=== PATIENT | male | born 2000 | race Caucasian/White ===

== ENCOUNTER 2018-09-19 16:11 | Emergency (ER) | payer BC, SELFPAY ==
[2018-09-19 16:18] VITALS: BP 129/84; PULSE 60; RESP 16; TEMP 36.6; O2SAT 99
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
[2018-09-19] MEDS: Amoxicillin 875/Clav. 125 TAB PO (17:19)
== END 2018-09-19 17:28 | disposition home or self-care (01) ==
PROVIDERS: Emergency Provider Nurse Practitioner Family; PCP Pediatrics
DX: S01.511A Laceration without foreign body of lip, initial encounter (principal); Y04.0XXA Assault by unarmed brawl or fight, initial encounter
CPT/HCPCS: 99283

== ENCOUNTER 2019-07-10 13:14 | Emergency (ER) | payer BC, SELFPAY ==
[2019-07-10 13:18] VITALS: BP 133/79; PULSE 75; RESP 16; TEMP 37; O2SAT 97
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
[2019-07-10] MEDS: Ketorolac 30 MG/ML VIAL IVP (14:18)
[2019-07-10] MEDS: Normal Saline 1,000 ML 1000 ML IV (14:18)
[2019-07-10] MEDS: Lidocaine 5% Patch 1 PATCH TP (14:19)
[2019-07-10 14:25] LABS: Abs Immature Grans 0.04 k/cumm (0.0-0.09); Absolute Basophil Count 0.02 k/cumm (0.0-0.2); Absolute Eosinophil Count 0.01 k/cumm (0.0-0.7); Absolute Lymphocyte Count 1.14 k/cumm (1.2-3.4); Absolute Neutrophil Count 7.32 k/cumm (1.2-6.7); Basophils % 0.2; Eosinophils % 0.1; HCT 42.6 % (40.0-50.0); HGB 14.8 g/dL (13.5-17.5); Immature Grans % 0.4; Lymphocytes % 12.5; Mean Corp. HGB Concentration 34.7 g/dL (32.0-36.0); Mean Corpuscular Hemoglobin 29.4 pg (27.0-33.0); Mean Corpuscular Volume 84.7 fL (80-95); Mean Platelet Volume 9.7 fL (8.0-11.0); Monocytes % 6.6; Neutrophils % 80.2; Platelet Count 271 x1000/uL (130-400); RBC 5.03 m/cumm (4.50-6.00); RBC Distribution Width 12.7 % (11.8-14.1); White Blood Cell Count 9.13 k/cumm (4.4-10.8)
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
[2019-07-10 14:32] LABS: Lipase 105 U/L (73-393); Magnesium 2.1 mg/dL (1.8-2.4)
[2019-07-10 14:37] LABS: ALT 37 U/L (16-63); AST 53 U/L (15-37); Albumin 3.9 g/dL (3.4-5.0); Alkaline Phosphatase 69 U/L (46-116); Anion Gap 9.2 mmol/L (3-11); BUN 7 mg/dL (7-18); Bilirubin, Total 0.5 mg/dL (0.2-1.0); CO2 27.8 mmol/L (21.0-32.0); CREATININE 0.93 mg/dL (0.70-1.30); Calcium 8.7 mg/dL (8.5-10.1); Chloride 103 mmol/L (98-107); Glucose 92 mg/dL (74-106); Potassium 4.2 mmol/L (3.5-5.1); Sodium 140 mmol/L (136-145); Total Protein 7.3 g/dL (6.4-8.2)
[2019-07-10 14:43] LABS: Troponin I < 0.05 ng/Ml (<0.06)
[2019-07-10] MEDS: Omnipaque 350 MG/ML 100 ML BTL IJ (14:45)
--- NOTE | 2019-07-10 14:45 | DI.RAD_ITS ---
EXAM: XR FOREARM RT CLINICAL HISTORY: s/p fall, r/o acute fracture. TECHNIQUE: 2D digital imaging was performed. COMPARISON: No exams were available for comparison FINDINGS: BONES: No acute fracture is present. No bony destructive lesion is seen. Visualized portion of elbow and wrist joints are unremarkable. SOFT TISSUE: Normal. FINDINGS: Unremarkable radiographs of the right forearm.
--- NOTE | 2019-07-10 14:47 | DI.RAD_ITS ---
EXAM: XR FOREARM LT CLINICAL HISTORY: s/p fall, r/o acute fracture. TECHNIQUE: 2D digital imaging was performed. COMPARISON: XR FOREARM RT from 07/10/2019 FINDINGS: BONES: No acute fracture is present. No bony destructive lesion is seen. Visualized portion of elbow and wrist joints are unremarkable. SOFT TISSUE: Normal. IMPRESSION: Unremarkable radiographs of the left forearm.
--- NOTE | 2019-07-10 14:57 | DI.VRAD_ITS ---
PROCEDURE INFORMATION: Exam: CT Chest With Contrast Exam date and time: 07/10/2019 2:34 PM Age: 19 years old Clinical indication: Other: Fall onto R rib/abdomen; R/O rib FX and liver injury; Other: Pain- fall TECHNIQUE: Imaging protocol: Computed tomography of the chest with intravenous contrast. Radiation optimization: All CT scans at this facility use at least one of these dose optimization techniques: automated exposure control; mA and/or kV adjustment per patient size (includes targeted exams where dose is matched to clinical indication); or iterative reconstruction. Contrast material: OMNIPAQUE 350; Contrast volume: 100 ml; Contrast route: IV; COMPARISON: No relevant prior studies available. FINDINGS: Lungs: Unremarkable. No consolidation. No masses. Pleural space: Unremarkable. No pneumothorax. No pleural effusion. Heart: Unremarkable. No cardiomegaly. No pericardial effusion. Aorta: Unremarkable. No aortic aneurysm. Lymph nodes: Unremarkable. No enlarged lymph nodes. Bones/joints: Unremarkable. No acute fracture. Soft tissues: Unremarkable. IMPRESSION: No acute findings. PROCEDURE INFORMATION: Exam: CT Abdomen And Pelvis With Contrast Exam date and time: 07/10/2019 2:34 PM Age: 19 years old Clinical indication: Other: Fall onto R rib/abdomen; R/O rib FX and liver injury; Other: Pain- fall TECHNIQUE: Imaging protocol: Computed tomography of the abdomen and pelvis with intravenous contrast. Radiation optimization: All CT scans at this facility use at least one of these dose optimization techniques: automated exposure control; mA and/or kV adjustment per patient size (includes targeted exams where dose is matched to clinical indication); or iterative reconstruction. Contrast material: OMNIPAQUE 350; Contrast volume: 100 ml; Contrast route: IV; COMPARISON: No relevant prior studies available. FINDINGS: Liver: Normal. No mass. Gallbladder and bile ducts: Normal. No calcified stones. No ductal dilation. Pancreas: Normal. No ductal dilation. Spleen: Normal. No splenomegaly. Adrenals: Normal. No mass. Kidneys and ureters: Normal. No hydronephrosis. Stomach and bowel: Unremarkable. No obstruction. No mucosal thickening. Appendix: No evidence of appendicitis. Intraperitoneal space: Unremarkable. No free air. No significant fluid collection. Vasculature: Unremarkable. No abdominal aortic aneurysm. Lymph nodes: Unremarkable. No enlarged lymph nodes. Bladder: Unremarkable as visualized. Reproductive: Unremarkable as visualized. Bones/joints: Unremarkable. No acute fracture. Soft tissues: Unremarkable. IMPRESSION: No acute findings. Dictated and Authenticated by: Deanna Washington MD. Ordering:ELMER Perez MD
--- NOTE | 2019-07-10 14:58 | DI.VRAD_ITS ---
PROCEDURE INFORMATION: Exam: XR Left Forearm Exam date and time: 07/10/2019 2:50 PM Age: 19 years old Clinical indication: Pain; Lower or forearm; Left TECHNIQUE: Imaging protocol: XR Left forearm. Views: 2 views. COMPARISON: No relevant prior studies available. FINDINGS: Bones/joints: There is no evidence of acute fracture.There is no evidence of malalignment or dislocation. Soft tissues: Normal. IMPRESSION: There is no evidence of acute fracture.There is no evidence of malalignment or dislocation. Dictated and Authenticated by: Deanna Washington MD. Ordering:ELMER Perez MD
--- NOTE | 2019-07-10 14:58 | DI.VRAD_ITS ---
PROCEDURE INFORMATION: Exam: XR Right Forearm Exam date and time: 07/10/2019 2:49 PM Age: 19 years old Clinical indication: Pain; Lower or forearm; Right TECHNIQUE: Imaging protocol: XR Right forearm. Views: 2 views. COMPARISON: No relevant prior studies available. FINDINGS: Bones/joints: There is no evidence of acute fracture.There is no evidence of malalignment or dislocation. Soft tissues: Normal. IMPRESSION: There is no evidence of acute fracture.There is no evidence of malalignment or dislocation. Dictated and Authenticated by: Deanna Washington MD. Ordering:ELMER Perez MD
--- NOTE | 2019-07-10 15:14 | DI.VRAD_ITS ---
PROCEDURE INFORMATION: Exam: CT Thoracic Spine Without Contrast Exam date and time: 07/10/2019 2:34 PM Age: 19 years old Clinical indication: Other: Fall off roof, midline lower t spine tender; Additional info: Fall off roof, midline lower t spine tender, R/O acute fracture TECHNIQUE: Imaging protocol: Computed tomography images of the thoracic spine without contrast. Radiation optimization: All CT scans at this facility use at least one of these dose optimization techniques: automated exposure control; mA and/or kV adjustment per patient size (includes targeted exams where dose is matched to clinical indication); or iterative reconstruction. COMPARISON: No relevant prior studies available. FINDINGS: Vertebrae: There is no evidence of acute fracture.There is no evidence of malalignment or dislocation. Unhealed well corticated fracture of the right lateral inferior aspect T11 consistent with old avulsion fracture. Discs/Spinal canal/Neural foramina: No spinal stenosis. Soft tissues: Unremarkable. IMPRESSION: 1. There is no evidence of acute fracture.There is no evidence of malalignment or dislocation. 2. Unhealed well corticated fracture of the right lateral inferior aspect T11 consistent with old avulsion fracture. PROCEDURE INFORMATION: Exam: CT Lumbar Spine Without Contrast Exam date and time: 07/10/2019 2:34 PM Age: 19 years old Clinical indication: Other: Fall off roof, midline lower t spine tender; Additional info: Fall off roof, midline lower t spine tender, R/O acute fracture TECHNIQUE: Imaging protocol: Computed tomography images of the lumbar spine without contrast. Radiation optimization: All CT scans at this facility use at least one of these dose optimization techniques: automated exposure control; mA and/or kV adjustment per patient size (includes targeted exams where dose is matched to clinical indication); or iterative reconstruction. COMPARISON: No relevant prior studies available. FINDINGS: Vertebrae: There is no evidence of acute fracture.There is no evidence of malalignment or dislocation. Discs/Spinal canal/Neural foramina: No spinal stenosis. No neural foraminal narrowing. Bladder: Distended bladder Soft tissues: Unremarkable. IMPRESSION: There is no evidence of acute fracture.There is no evidence of malalignment or dislocation. Dictated and Authenticated by: Deanna Washington MD. Ordering:ELMER Perez MD
[2019-07-10 15:37] VITALS: BP 115/62; PULSE 62; RESP 16; TEMP 37.1; O2SAT 99
== END 2019-07-10 15:43 | disposition home or self-care (01) ==
PROVIDERS: Emergency Provider Physician Assistant; PCP Pediatrics
DX: S20.211A Contusion of right front wall of thorax, initial encounter (principal); S30.1XXA Contusion of abdominal wall, initial encounter; S50.811A Abrasion of right forearm, initial encounter; S50.812A Abrasion of left forearm, initial encounter; W13.2XXA Fall from, out of or through roof, initial encounter
CPT/HCPCS: 74177; 80053; 83690; 96361; 96374; 99285; 71260; 73090; 83735; 84484; 85025; J1885; J3490

== ENCOUNTER → 2023-06-19 21:31 | Outpatient (CLI) | payer OTHER, SELFPAY ==
--- NOTE | 2023-06-19 10:35 | DI.RAD_ITS ---
Exam(s) XR THORACIC SPINE COMPLETE EXAM: XR THORACIC SPINE COMPLETE CLINICAL HISTORY: evaluate pathology, thoracic back pain, M54.6. TECHNIQUE: 2D digital imaging was performed. COMPARISON: No exams were available for comparison FINDINGS: 3 views No evidence of fracture or listhesis. No significant disc space narrowing. No abnormal widening of the paraspinal lines. No osseous lesions. No significant scoliosis. Bone density appears normal. IMPRESSION: No significant radiographic findings on these images of the thoracic spinal column. DATA REPOSITORY: RADIATION DOSE DELIVERED:
--- NOTE | 2023-06-19 10:35 | DI.RAD_ITS ---
Exam(s) XR LUMBAR SPINE COMPLETE EXAM: XR LUMBAR SPINE COMPLETE CLINICAL HISTORY: evaluate pathology, lumbar back pain, M54.50. TECHNIQUE: 2D digital imaging was performed. COMPARISON: CT CT CHEST/ABD/PEL W from 07/10/2019 FINDINGS: Five views. There is no evidence of fracture, listhesis, nor pars interarticularis defects. All the disc spaces exhibit normal height. There are multilevel endplate Schmorl's node invaginations which were also ev ident on sagittal reconstructed images of CT scan of the abdomen performed June 2019. There is n o scoliosis. No significant facet arthropathy. Sacroiliac joints appear unremarkable. IMPRESSION: No significant osseous findings the lumbosacral spinal column. Multilevel Schmorl's node invaginatio ns again noted, unchanged from prior CT scan June 2019. DATA REPOSITORY: RADIATION DOSE DELIVERED:
== END ==
PROVIDERS: Visit Provider Nurse Practitioner Family
DX: M54.50 Low back pain, unspecified (principal); M54.6 Pain in thoracic spine
CPT/HCPCS: 72072; 72110

== ENCOUNTER → 2024-01-05 01:44 | Outpatient (CLI) | payer OTHER, SELFPAY ==
--- NOTE | 2024-01-05 07:30 | DI.MRI_ITS ---
Exam(s) MR THORACIC SPINE WO EXAM: MR THORACIC SPINE WO CLINICAL HISTORY: suspect disc involvement,THORACIC MYOFASCIAL STRAIN,S29.019D. TECHNIQUE: Multiplanar multisequence MRI of the Thoracic spine was performed. CONTRAST MATERIAL: Noncontrast COMPARISON: CR XR LUMBAR SPINE COMPLETE from 06/19/2023 CR XR THORACIC SPINE COMPLETE from 06/19/2023 FINDINGS: Bones: The vertebral body heights are well maintained. Alignment is satisfactory. The signal characte ristics are unremarkable. Small endplate osteophytes in the lower thoracic regions. Schmorl's node s at multiple levels. Cord: The thoracic cord is normal size and signal intensity. No intrinsic cord lesion is present. Discs: No disc herniation or significant bulge is present. Soft tissues: Normal. No abnormal signal in the paraspinal muscles. The kidneys appear normal. A anne is normal in diameter. IMPRESSION: Mild degenerative changes at lower thoracic spine. DATA REPOSITORY:
--- NOTE | 2024-01-05 12:50 | DI.RAD_ITS ---
Exam(s) XR EYE FOREIGN BODY EXAM: XR EYE FOREIGN BODY INDICATION: MRI clearance,H/O FOREIGN BODY IN EYE,Z87.821. COMPARISON: No exams were available for comparison TECHNIQUE: 2D digital imaging was performed. Three views. FINDINGS: No radiopaque foreign body. No fracture is identified. Sinuses are grossly clear. IMPRESSION: No radiopaque foreign body. DATA REPOSITORY: RADIATION DOSE DELIVERED:
== END ==
PROVIDERS: Visit Provider Nurse Practitioner Family
DX: Z87.821 Personal history of retained foreign body fully removed (principal); S29.019D Strain of muscle and tendon of unspecified wall of thorax, subsequent encounter
CPT/HCPCS: 70030; 72146

== ENCOUNTER → 2024-01-29 00:08 | Outpatient (CLI) | payer OTHER, SELFPAY ==
--- NOTE | 2024-01-29 07:00 | DI.MRI_ITS ---
Exam(s) MR LUMBAR SPINE WO EXAM: MR LUMBAR SPINE WO CLINICAL HISTORY: persistent LUMBAR BACK PAIN,PARASPINAL MUSCLE SPASM,M54.50,M62.830. TECHNIQUE: Multiplanar multisequence MRI of the Lumbar spine was performed. COMPARISON: CR XR LUMBAR SPINE COMPLETE from 06/19/2023 CR XR EYE FOREIGN BODY from 01/05/2024 FINDINGS: Bones: The last intervertebral disc space is designated the L5/S1 level for the numbering purpose of this ex amination. The vertebral body heights are well maintained. Alignment: Unremarkable. The marrow signal characteristics are unremarkable. Cord: The conus tip ends at the T12 level. It is of normal size and signal intensity. T12-L1: No focal disc herniation is present. No central spinal canal stenosis.No neural foraminal st enosis. Small Schmorl's nodes. L1-2: No focal disc herniation is present. No central spinal canal stenosis.No neural foraminal sten osis. Small Schmorl's nodes. L2-3: No focal disc herniation is present. No central spinal canal stenosis.No neural foraminal farzad nosis. Small Schmorl's nodes. L3-4: No focal disc herniation is present. No central spinal canal stenosis.No neural foraminal farzad nosis. Tiny Schmorl's nodes. L4-5:Disc height is maintained. Small endplate osteophytes projecting posteriorly. Minimal disc bul ging. No focal disc herniation is present. Facet degenerative changes and ligamentous hypertrophy c ombine to produce mild central canal stenosis. No neural foraminal stenosis. L5-S1: No focal disc herniation is present. Facet degenerative changes, left greater than right. Mi ld ligamentous hypertrophy. No significant central canal stenosis. No neural foraminal stenosis. The visualized SI joints and sacrum are unremarkable. Soft tissues: The paraspinal soft tissues are unremarkable. IMPRESSION: Combination of mild disc bulging facet degenerative changes as well as ligamentous hypertrophy produc e mild central canal stenosis at L4-5. DATA REPOSITORY:
== END ==
PROVIDERS: Visit Provider Nurse Practitioner Family
DX: M62.830 Muscle spasm of back (principal); M54.50 Low back pain, unspecified; M48.062 Spinal stenosis, lumbar region with neurogenic claudication
CPT/HCPCS: 72148

== ENCOUNTER 2024-05-11 07:29 | Outpatient (CLI) | payer OTHER, SELFPAY ==
[2024-05-11 07:41] VITALS: BP 116/79; PULSE 94; RESP 20; TEMP 36.7; O2SAT 100
[2024-05-11 08:15] VITALS: O2SAT 100
[2024-05-11 08:20] VITALS: O2SAT 99
[2024-05-11 08:30] VITALS: O2SAT 99
[2024-05-11] MEDS: Nerve Block Tray 1 EACH MC (08:42)
[2024-05-11] MEDS: methylPREDNISolone ACETATE 40 MG/ML VIAL IJ (08:42)
[2024-05-11] MEDS: Lidocaine 2% Multi-Dose 20 ML VIAL IJ (08:42)
--- NOTE | 2024-05-11 08:50 | PDOC.PAIN ---
Date of service: 05/11/24 Time of Service: 08:57 US Guided Injections Type of Ultrasound Guided Injection: Lower back Right Paraspinous muscle and Middle back Bilateral Paraspinous muscle Trigger Point Injection Pre-Procedural Evaluation Pain to palpation of the paraspinous muscles bilaterally Referral Patient has been referred to the [facility] for Right Paraspinous muscle Lower back and Bilateral Paraspinous muscle Middle back Trigger Point Injection for a chief complaint of Pre-Procedural Pain Score Pre-procedural pain score: 7/10 Reason for Exam Muscle pain Patient Interview Patient was interviewed and medical record reviewed: Yes There were no contraindications to performing an US guided procedure. Risks,expected side effects, potential benefits were reviewed. The patient consent form was signed and witnessed. Standard time out procedure was performed. Patient Safety No skin issues at the site of injections Procedure Description Patient was placed in the prone position and the following Pulse Ox applied. Pre-Procedure ultrasound scanning performed using a Linear 9 MHz probe Site Preparation Chloroprep Local Anesthesia of Lidocaine 2%. A 21 G 3.5 [place] ultrasound needle was placed under live US guidance using an in-plane approach to the target area. After visualization of the needle tip at the target area Depo-Medrol 40mg per cc and Lidocaine 2% were used. Total of Injectate/Medication Note: 1 cc of Depomedrol and 8 cc of 2% Lidocaine. Negative aspiration for blood. [place] were removed without difficulty. Ultrasound images were captured and stored. Patient Mental Status Patient was alert and awake during procedure Vital Signs Vital signs were stable throughout the procedure and recorded by nursing. Follow Up/Discharge Follow up plans and appointments were discussed with patient. Post procedure instruction was given as documented in nursing documentation. Discharge criteria met and patient discharged from Pain Management Center: Yes Post Procedure Pain Post Procedure Pain: 3/10 Patient tolerated procedure well and No complications Procedure Outcome: Successful Trigger Point Injection 3+muscles Non US Guided Injections Procedure Description Patient was placed in the prone position Post Procedure Pain Post Procedure Pain: 3/10
== END 2024-05-11 07:30 | disposition home or self-care (01) ==
PROVIDERS: Visit Provider Preventive Medicine Occupational Medicine
DX: M79.18 Myalgia, other site (principal)
CPT/HCPCS: 20553; J1010; J2003

== ENCOUNTER 2024-07-21 13:44 | Outpatient (CLI) | payer OTHER, SELFPAY ==
--- NOTE | 2024-07-21 06:00 | DI.RAD_ITS ---
Exam(s) XR PAIN CLINIC THORACIC SP 2V EXAM: XR PAIN CLINIC THORACIC SP 2V CLINICAL HISTORY: DX: Thoracic spondylosis TECHNIQUE: 2D and realtime digital imaging was performed. CONTRAST MATERIAL: Refer to procedure report. COMPARISON: No exams were available for comparison FINDINGS: Fluoroscopy was provided for Dr. Smith during the performance of a thoracic medial branch block. Ple ase refer to the procedure report for complete details. Ka,r=4.92 mGy IMPRESSION: RADIATION DOSE DELIVERED: 0.0 0.0 0
[2024-07-21 13:56] VITALS: BP 122/87; PULSE 82; RESP 20; TEMP 36.7; O2SAT 96
[2024-07-21 14:14] VITALS: O2SAT 98
[2024-07-21 14:16] VITALS: BP 128/83; PULSE 68; PULSE 72; RESP 16; O2SAT 99
[2024-07-21 14:20] VITALS: PULSE 80; RESP 14; O2SAT 99
[2024-07-21 14:25] VITALS: BP 116/86; PULSE 75
--- NOTE | 2024-07-21 14:26 | PDOC.PAIN ---
Date of service: 07/21/24 Time of Service: 14:26 Pain Managment Procedure Note Procedure Note Procedure Note: PROCEDURE NOTE Right Thoracic Medial Branch Blocks Date of Service: July 21, 2024 Patient: Topher Jaime Provider: Bora Smith DO, MPH Topherflor Jaime has been referred to the [facility] for lumbar medial branch blocks. Pre-operative diagnosis: Thoracic Spondylosis without Myelopathy ICD-10 M47.14 Post-operative diagnosis: Same Pre-procedure pain: VAS= 7-8/10 COMMENTS: I previously evaluated him in the office. His symptoms are unchanged. Bianca was interviewed and the medical records were reviewed. There were no medical, pharmacologic, radiographic or other structural contraindications to attempting fluoroscopically guided local anesthetic thoracic medial branch blocks. Risks and potential side effects were discussed. I also discussed the potential benefit(s) of the procedure with Topher, and voiced concerns were addressed. After Topher was completely informed about the procedure, the printed consent form was signed. A standard time-out procedure was performed. Topher was placed in the prone position on the fluoroscopy table. Automated blood pressure cuff and pulse oximeter were applied. The skin entry points for approaching the anatomic target points of the segmental medial branches of right T9, T10, and T11 were identified with fluoroscopy and marked. The skin at the target site area was thoroughly prepared with Chlorhexadine. The skin was then draped. Next, a 25 gauge 3.5 spinal needle was placed under fluoroscopic guidance down on to the target point (the articular pillar) for each respective segmental medial branch. Position was confirmed in A/P and lateral views. Aspiration revealed no blood or clear fluid. Next, 0.25ml of omnipaque 240 was injected at each level. No contrast following a vascular or neural pattern was visualized under continuous fluoroscopy. Next, 0.25 ml of preservative-free 0.5% bupivicaine was injected at each level. There was no unusual discomfort expressed by Topher. The needles were withdrawn without difficulty. (49 mls of Omnipaque was wasted) Topher was observed and was without hemodynamic, neurologic, or allergic reactions.? Fluoroscopic images were digitally archived. Provacative testing Right Side Directly before the block VAS (0-10) = 7/10 Five minutes after the block VAS (0-10) = 2/10 Percentage relief obtained with this diagnostic block 80% Any improved physical functioning directly after the blocks? Able to move his back without problems. Follow up plans and appointments were discussed with Topher. Topher was instructed to keep careful note of how the usual pain was modified by these injections. Specifically, to keep a pain diary for the next 4 hours using a numeric pain scale of 0-10 and report these results. Post procedure instruction was given as documented in the nursing documentation and having met discharge criteria, the patient was [facility]. Based on the medial branches blocked today, if they patient has adequate relief and we are able to proceed to radiofrequency ablation, the treatment should result in the denervation of the right T10-T11 and T11-T12 facet joints. We would expect to denervate a total of 2 facets during the radiofrequency ablation. COMMENTS: No apparent complications. Post-procedure pain: VAS= 2/10 Topher will call back with 0-4 hour post-procedure pain scores. I personally performed the entire procedure. BORA SMITH DO, MPH ABPM&R-subspecialty board certification in Pain Medicine [facility] [facility]
[2024-07-21] MEDS: Omnipaque 240 MG/ML 50 ML BTL IJ (14:34)
[2024-07-21] MEDS: Bupivacaine 0.5% Pres-Free 10 ML VIAL IJ (14:34)
[2024-07-21] MEDS: Nerve Block Tray 1 EACH MC (14:36)
== END 2024-07-21 13:45 | disposition home or self-care (01) ==
LOC: PC 13:44
PROVIDERS: Visit Provider Preventive Medicine Occupational Medicine
DX: M47.14 Other spondylosis with myelopathy, thoracic region (principal)
CPT/HCPCS: 64491; 72070; J0665; Q9967

== ENCOUNTER 2024-08-11 09:48 | Outpatient (CLI) | payer OTHER, SELFPAY ==
[2024-08-11 09:58] VITALS: BP 120/87; PULSE 69; RESP 18; TEMP 36.7; O2SAT 100
[2024-08-11 10:14] VITALS: PULSE 68; PULSE 69; RESP 16; O2SAT 99
[2024-08-11 10:15] VITALS: BP 147/75; PULSE 68; RESP 16; O2SAT 100
[2024-08-11 10:16] VITALS: BP 138/81; PULSE 67; RESP 20; O2SAT 100
[2024-08-11 10:20] VITALS: PULSE 61; RESP 18; O2SAT 99
--- NOTE | 2024-08-11 10:29 | DI.RAD_ITS ---
Exam(s) XR PAIN CLINIC THORACIC SP 2V EXAM: XR PAIN CLINIC THORACIC SP 2V CLINICAL HISTORY: DX: Thoracic Spondylosis TECHNIQUE: 2D and realtime digital imaging was performed. CONTRAST MATERIAL: Refer to procedure report. COMPARISON: No exams were available for comparison FINDINGS: Fluoroscopy was provided for Dr. Smith during the performance of a thoracic medial branch block. Ple ase refer to the procedure report for complete details. Ka,r=6.54 mGy IMPRESSION: RADIATION DOSE DELIVERED: 0.0 0.0 0
[2024-08-11] MEDS: Omnipaque 240 MG/ML 50 ML BTL IJ (10:30)
[2024-08-11] MEDS: Bupivacaine 0.5% Pres-Free 10 ML VIAL IJ (10:30)
[2024-08-11] MEDS: Nerve Block Tray 1 EACH MC (10:30)
--- NOTE | 2024-08-11 10:35 | PDOC.PAIN_ITS ---
Date of service: 08/11/24 Time of Service: 10:35 Pain Managment Procedure Note Procedure Note Procedure Note: PROCEDURE NOTE Right Thoracic Medial Branch Blocks #2 Date of Service: August 11, 2024 Patient: Topher Jaime Provider: Bora Smith DO, MPH Topherflor Jaime has been referred to the [facility] for thoracic medial branch blocks. Pre-operative diagnosis: Thoracic Spondylosis without Myelopathy ICD-10 M47.814 Post-operative diagnosis: Same Pre-procedure pain: VAS= 6/10 COMMENTS: He did very well with his first set of TMBBs Bianca was interviewed and the medical records were reviewed. There were no medical, pharmacologic, radiographic or other structural contraindications to attempting fluoroscopically guided local anesthetic thoracic medial branch blocks. Risks and potential side effects were discussed. I also discussed the potential benefit(s) of the procedure with Topher, and voiced concerns were addressed. After Topher was completely informed about the procedure, the printed consent form was signed. A standard time-out procedure was performed. Topher was placed in the prone position on the fluoroscopy table. Automated blood pressure cuff and pulse oximeter were applied. The skin entry points for approaching the anatomic target points of the segmental medial branches of right T9, T10, and T11 were identified with fluoroscopy and marked. The skin at the target site area was thoroughly prepared with Chlorhexadine. The skin was then draped. Next, a 25 gauge 3.5 spinal needle was placed under fluoroscopic guidance down on to the target point (the articular pillar) for each respective segmental medial branch. Position was confirmed in A/P and lateral views. Aspiration revealed no blood or clear fluid. Next, 0.25ml of omnipaque 240 was injected at each level. No contrast following a vascular or neural pattern was visualized under continuous fluoroscopy. Next, 0.25 ml of preservative-free 0.5% bupivicaine was injected at each level. There was no unusual discomfort expressed by Topher. The needles were withdrawn without difficulty. (49 mls of Omnipaque was wasted) Topher was observed and was without hemodynamic, neurologic, or allergic reactions.? Fluoroscopic images were digitally archived. Provacative testing using the Modified [place]'s facet loading test- Right Side Directly before the block VAS (0-10) = 6/10 Five minutes after the block VAS (0-10) = 2/10 Percentage relief obtained with this diagnostic block 80% Any improved physical functioning directly after the blocks? Able to move his back with ease. Follow up plans and appointments were discussed with Topher. Topher was instructed to keep careful note of how the usual pain was modified by these injections. Specifically, to keep a pain diary for the next 4 hours using a numeric pain scale of 0-10 and report these results. Post procedure instruction was given as documented in the nursing documentation and having met discharge criteria, the patient was [facility] from the [facility]. Based on the medial branches blocked today, if they patient has adequate relief and we are able to proceed to radiofrequency ablation, the treatment should result in the denervation of the right T10-T11 and T11-T12 facet joints. We would expect to denervate a total of 2 facets during the radiofrequency ablation. COMMENTS: No apparent complications. Post-procedure pain: VAS= 2/10 Topher will call back with 0-4 hour post-procedure pain scores. I personally performed the entire procedure. BORA SMITH DO, MPH ABPM&R-subspecialty board certification in Pain Medicine [facility]
== END 2024-08-11 09:49 | disposition home or self-care (01) ==
PROVIDERS: Visit Provider Preventive Medicine Occupational Medicine
DX: M47.814 Spondylosis without myelopathy or radiculopathy, thoracic region (principal)
CPT/HCPCS: 64490; 64491; 72070; J0665; Q9967

== ENCOUNTER 2024-09-08 11:45 | Outpatient (CLI) | payer OTHER, SELFPAY ==
[2024-09-08] VITALS (10 sets, daily range): BP systolic 117–145; BP diastolic 62–93; PULSE 64–77; RESP 10–21; TEMP 36.7; O2SAT 96–100
--- NOTE | 2024-09-08 12:25 | PDOC.PAIN ---
Date of service: 09/08/24 Time of Service: 12:25 Pain Managment Procedure Note Procedure Note Procedure Note: PROCEDURE NOTE RIGHT THORACIC RADIOFREQUENCY ABLATION Date of Service: September 08, 2024 Patient:? Topher Jaime? Provider:? Ari Smith DO, MPH Topher Jaime [facility] for [Bilateral] Lumbar Radiofrequency Ablation with the [employer] Machine.? Pre Operative Diagnosis: Thoracic Spondylosis without Myelopathy ICD-10 M47.814 Post Operative Diagnosis: Same Pre procedure pain; VAS= 7/10 Comments: Good relief with first 2 TMBBs PROCEDURE: Radiofrequency Ablation of medial branches - right T9-T11. Topher?was interviewed and the medical record was reviewed.? There were no medical, pharmacologic, radiographic or other structural contraindications to attempting fluoroscopically guided RIGHT thoracic Radiofrequency Ablation.?Risks and expected side effects as well as potential benefit of the procedure were reviewed with Topher, and the patient's voiced concerns were addressed.? The printed consent form was signed.? Standard time-out procedure was performed. Topher was brought into the fluoroscopy suite and positioned into the prone position on the fluoroscopy table and allowed to adjust to a position of comfort. A grounding pad was placed on the left abdomen. The sterile field was prepared using chlorhexidine preparation of the skin and sterile draping. Local anesthesia superficial and deep was provided by local infiltration of 2% lidocaine. A 17g 100 mm radiofrequency introducer needle was placed to the planned anatomic targets guided with intermittent fluoroscopy with a perpendicular approach to terminally place at the junction of the superior articular process and the transverse process of the right T9, T10, and T11. The stylets were removed and radiofrequency probes with a 4mm active tip were then inserted. Needle tip position of the probes was verified in the AP, oblique, and lateral views. At each site, the medial branch nerve was stimulated at 2 Hz to a maximum 1-2 volts determined to finalize safe needle and electrode placement. The patient was awake and responsive during this portion of the procedure. Each target was anesthetized with 1-2 mL of 2 % Lidocaine for anesthesia for lesioning and then each target was lesioned at 80 degrees Celsius for 2 minutes and 30 seconds. Tissue impedances were noted to be between 250 and 500 Ohms. I next injected 1/4 cc of Dexamethasone (10mg/cc) followed by 1 cc of 0.5% Bupivacaine at each medial brnach. There was no unusual discomfort expressed by Topher. The needles were withdrawn without difficulty and bandages placed over the needle placement sites, the patient was observed and was without hemodynamic, neurologic, or allergic reactions. Fluoroscopic images were digitally archived. POST PROCEDURE EVALUATION: IMPRESSION: 1. Summary of procedure. Medication given is documented in the MAR. 2. Follow up plan: [facility]her to contact [facility] as needed.?This procedure may be repeated if the patient achieves at least 50% improvement in pain/function for at least 6 months. 3. Estimated Blood Loss: <5 mls 4. Fluoroscopy time: Documented in the EMR. Follow up plans and appointments were discussed with the Topher. Post procedure instruction was given as documented in nursing documentation and having met discharge criteria, Topher was discharged from the [facility]. This advanced procedure uses cooled radiofrequency energy to safely target the sensory nerves responsible for sending pain signals.1 A radiofrequency generator transmits a small current of Radiofrequency energy through an insulated electrode, or probe, placed within tissue. Ionic heating, produced by the friction of charged molecules, thermally deactivates the nerves responsible for sending pain signals to the brain. Radiofrequency energy heats and cools the tissue at the site of pain. Unlike other Radiofrequency procedures, Coolief circulates water through the device while heating nervous tissue to create a larger treatment area, increasing the opportunity to help with pain. This combination targets the pain-transmitting nerves without excessive heating, leading to pain relief. COMMENTS: No apparent complications. Post-procedure pain: VAS= 4/10. I personally completed the entire procedure. ARI SMITH DO, MPH ABPM&R - Subspecialty board certification in Pain Medicine [facility] Coding Conscious Sedation used for procedure: Yes CPT Codes: Single Facet Joint, Cervical/Thoracic cool - 92422Y ([id number]~G) Single Facet Joint, Cervical/Thoracic cool each add'l - 73585O (90577M18~G) MOD SED SAME PHYS/QHP 5/>YRS - 23736 (12174) MOD SED SAME PHYS/QHP EA - 05333 (15110) 2 units (of 15 minutes each) Additional Codes: Date of Service (76452) Date of service: 09/08/24
[2024-09-08] MEDS: Midazolam 2 MG/2 ML VIAL IVP (12:35)
[2024-09-08] MEDS: fentaNYL 100 MCG/2 ML VIAL IVP ×2 (12:35→12:55)
[2024-09-08] MEDS: Lactated Ringers 500 ML 80 ML IV (12:48)
--- NOTE | 2024-09-08 13:05 | DI.RAD_ITS ---
Exam(s) XR PAIN CLINIC THORACIC SP 2V EXAM: XR PAIN CLINIC THORACIC SP 2V CLINICAL HISTORY: DX: Thoraic Spondylosis. TECHNIQUE: Fluoroscopy was provided for the referring physician for guidance with performing pain cl inic injection procedure. COMPARISON: No exams were available for comparison FINDINGS: Please see procedure note for details. Fluoro time: 34.3 seconds RADIATION DOSE DELIVERED: Ka,r=5.03 mGy
[2024-09-08] MEDS: Lidocaine 2% Pres-Free 5 ML VIAL IJ (13:08)
[2024-09-08] MEDS: Dexamethasone Sod. Phos./Pres-Free 10 MG/ML VIAL IJ (13:09)
[2024-09-08] MEDS: Bupivacaine 0.5% Pres-Free 10 ML VIAL IJ (13:09)
== END 2024-09-08 11:46 | disposition home or self-care (01) ==
LOC: PC 11:47
PROVIDERS: PCP Dermatology; Visit Provider Preventive Medicine Occupational Medicine
DX: M47.814 Spondylosis without myelopathy or radiculopathy, thoracic region (principal)
CPT/HCPCS: 64633; 64634; 72070; J0665; J1100; J2250; J3010

== ENCOUNTER 2025-04-25 10:31 | Outpatient (CLI) | payer SELFPAY ==
--- NOTE | 2025-04-25 10:32 | DI.RAD_ITS ---
Exam(s) XR ANKLE LT COMPLETE EXAM: XR ANKLE LT COMPLETE CLINICAL HISTORY: LT ANKLE PAIN M25.572 AND JOINTS LEFT FOOT TECHNIQUE: 2D digital imaging was performed. Three views. COMPARISON: CR LEFT ANKLE COMPLETE from 04/25/2014 FINDINGS: BONES: No acute fracture is present. No bony destructive lesion is seen. JOINTS:The ankle mortise is normally aligned. SOFT TISSUE: Swelling around the lateral malleolus. IMPRESSION: Soft tissue swelling. No fracture or ankle mortise widening. DATA REPOSITORY: RADIATION DOSE DELIVERED:
== END 2025-04-25 10:51 ==
LOC: DI 10:31
PROVIDERS: PCP Dermatology; Visit Provider Nurse Practitioner Family
DX: M25.572 Pain in left ankle and joints of left foot (principal)
CPT/HCPCS: 73610

== ENCOUNTER 2025-05-15 06:15 | Day surgery (SDC) | payer SELFPAY ==
[2025-05-15 06:34] VITALS: BP 126/83; PULSE 81; RESP 14; TEMP 36.4; O2SAT 100
--- NOTE | 2025-05-15 07:05 | W.PM.HP.N ---
Date of service: 05/15/25 Time of Service: 07:05 Assessment and Plan Assessment and plan (1) Umbilical hernia without obstruction and without gangrene: Status: Acute Assessment and plan: symptomatic umbilical hernia, repair is indicated. Discussed open and lap repair in office and agreed on lap repair for optimal mesh size placement. discussed nicotine use and its harmful effect on healing, infection risk and hernia recurrence. Discussed laparoscopic umbilical hernia repair with mesh procedure risks benefits alternatives and expectations. Pain, bleeding, infection, damage to surrounding structures, recurrence. Discussed postoperative lifting restriction of 20 pounds for 4 weeks. I will let him return to work at 2 weeks. He asked good questions and verbalized understanding of the plan. Pt has cold symptoms this AM and auscultation reveals wheezing in LLL per anesthesia. We will postpone his elective repair for 2 weeks to allow him to recover from his cold. History of Present Illness Narrative: Chief complaint: UHR HPI: 25yo M here for elective umbilical hernia repair with mesh. umbilical hernia symptoms include soreness after a long day of work. no incarceration or obstructive symptoms. He is ready to have it fixed today. Notes he was working outside this weekend and woke this morning feeling congested and sore throat. PFSH All Active Problems Umbilical hernia without obstruction and without gangrene (Acute) Thoracic spondylosis without myelopathy (Acute) Muscle pain (Acute) Lumbar back pain (Acute) Thoracic myofascial strain (Acute) Paraspinal muscle spasm (Acute) Migraine headache without aura (Acute) Chronic headaches (Acute) Medical History History of foreign body in eye No significant past medical history Surgical History Procedures CLOSED MANIPULATIVE REDUCTION OF A TRIPLANE FX LEFT DISTAL TIBIA 03/07/14.HE Bladder Surgery Surgery to enlarge bladder when 8 Family History Mother Anxiety Father Anxiety Grandfather Anxiety Grandfather Anxiety Grandmother Anxiety Grandmother No problems noted. Maternal Uncle Substance abuse Anxiety Social History Smoking/Tobacco Use Status: Current every day Tobacco Type: cigarettes and e-cigarettes Smoking risk assessment performed?: Yes Alcohol Intake: current Alcohol Intake frequency: a few times a month Drug use: Daily Substance use type: marijuana Details: inhaled, vaped, none this morning. Household members: family Housing: house Number of Children: 0 Current gender identity: male Seatbelt use: sometimes Do you feel safe at home: Yes Do you feel safe in your relationship?: Yes Meds Allergies and Home Medications Allergies Allergy/AdvReac Type Severity Reaction Status Date / Time No Known Allergies Allergy Verified 05/15/25 06:24 Home Medications Medication Instructions Recorded Confirmed Type ibuprofen 800 mg tablet 800 mg PO TID PRN pain #90 tabs 08/03/23 05/15/25 Rx Exam Narrative Exam Narrative: awake, NAD eomi, MMM, nasal congestion present midline trachea, neck is symmetric PULM: normal resp effort, equal chest rise with respiration CARDIAC: normal PMI, no jvd, regular rate, normal perfusion abdomen is nondistended. umbilical hernia with suraumbilical bulge extremities are without deformity, normal movement of all four extremities speech is clear and coherent mood and affect are congruent, no focal neurological deficits skin without rash Results Last Vital Signs Temp 97.5 F L 05/15/25 06:34 Pulse 81 05/15/25 06:34 Resp 14 05/15/25 06:34 BP 126/83 05/15/25 06:34 Pulse Ox 100 05/15/25 06:34 Time Spent Time spent with Patient: <40 minutes Time was spent: referring, communicating with other health career services representative and counseling the patient
--- NOTE | 2025-05-15 07:12 | PDOC.ANES ---
Date of service: 05/15/25 Time of Service: 07:12 Anesthesia Note Report Anesthesia Note: Patient in [facility] this morning with sore throat, feeling of general stuffiness all developed in last 24 hours. Patient with wheeze to left lower lobe. Discussed with Dr. Chou and with patient. Discussed case with anesthesia colleagues and decision to postpone today. Discussed with patient and he understands.
== END 2025-05-15 06:16 | disposition home or self-care (01) ==
PROVIDERS: PCP Dermatology; Visit Provider Surgery
DX: Z53.9 Procedure and treatment not carried out, unspecified reason (principal); K42.9 Umbilical hernia without obstruction or gangrene